=== PATIENT | male | born 1955 | race Caucasian/White ===

== ENCOUNTER 2024-01-10 10:48 | Inpatient (IN) | payer BC, MEDICARE ==
[~2024-01-10] VITALS: Ht 182.9 cm; Wt 107.1 kg
[2024-01-10] MEDS ORDERED: WELLTAB40 PO (11:36)
[2024-01-10] MEDS ORDERED: PRED5TA PO (11:36)
[2024-01-10] MEDS ORDERED: POTA-151 PO (11:36)
[2024-01-10] MEDS ORDERED: LASI20TA3 PO (11:36)
[2024-01-10] MEDS ORDERED: NORV5TAB PO (11:36)
[2024-01-10] MEDS ORDERED: CLOP75TA99 PO (11:36)
[2024-01-10] MEDS ORDERED: ELIQ5TAB PO (11:36)
[2024-01-10] MEDS ORDERED: SERO200T PO (11:36)
[2024-01-10] MEDS ORDERED: PROTPAK PO (11:36)
[2024-01-10] MEDS ORDERED: CLON0.5T17 PO (11:36)
[2024-01-10] MEDS ORDERED: LIPI20TA PO (11:36)
[2024-01-10 11:42] LABS: BASO % 0.6 % (0.0-1.0); EOS # 0.1 10^3/uL (0.0-0.5); HEMATOCRIT 37.9 % (42.0-52.0); HEMOGLOBIN 12.4 g/dl (13.5-17.5); LYMPH # 0.8 10^3/uL (1.5-5.0); LYMPH % 16.5 % (24.0-44.0); MEAN CORPUSCULAR HEMOGLOBIN 31.4 pg (27.0-33.0); MEAN CORPUSCULAR HGB CONC 32.7 g/dl (32.0-36.5); MEAN CORPUSCULAR VOLUME 95.9 fl (80.0-96.0); MONO # 0.4 10^3/uL (0.0-0.8); MONO % 8.6 % (2.0-8.0); NEUTROPHILS # 3.6 10^3/uL (1.5-8.5); NEUTROPHILS % 72.5 % (36.0-66.0); PLATELET COUNT, AUTOMATED 145 10^3/uL (150-450); RED BLOOD COUNT 3.95 10^6/uL (4.30-6.10); WHITE BLOOD COUNT 4.9 10^3/uL (4.0-10.0)
[2024-01-10 11:44] LABS: ETHYL ALCOHOL (ETHANOL) 0.007 % (0.000-0.010)
[2024-01-10 11:46] LABS: CALCIUM LEVEL 9.1 MG/DL (8.3-10.6); CK-MB VALUE MASS 1.1 NG/ML (<3.6); CREATININE FOR GFR 1.75 MG/DL (0.70-1.30); GLOMERULAR FILTRATION RATE 41.6 (>49); INR 1.53; MAGNESIUM LEVEL 1.8 MG/DL (1.8-2.4); PARTIAL THROMBOPLASTIN TIME 27.3 SECONDS (24.8-34.2); POTASSIUM SERUM 4.5 MMOL/L (3.5-5.1); PROTHROMBIN TIME 17.9 SECONDS (12.5-14.5)
[2024-01-10 11:48] LABS: FREE T4 1.07 NG/DL (0.89-1.76); THYROID STIMULATING HORMONE 1.153 uIU/ML (0.55-4.78)
[2024-01-10 11:50] LABS: MB/CK RELATIVE INDEX 1.57 (< OR =4)
[2024-01-10 12:29] LABS: AMPHETAMINES LEVEL URINE NEGATIVE (NEGATIVE)
[2024-01-10 12:30] LABS: BARBITURATES URINE NEGATIVE (NEGATIVE); BENZODIAZEPINES URINE NEGATIVE (NEGATIVE); CANNABINOIDS URINE NEGATIVE (NEGATIVE); COCAINE METABOLITE URINE NEGATIVE (NEGATIVE); METHADONE URINE NEGATIVE (NEGATIVE); OPIATES URINE NEGATIVE (NEGATIVE); PHENCYCLIDINE URINE NEGATIVE (NEGATIVE)
[2024-01-10] MEDS ORDERED: ISOVUE-370 76% 100ML VIAL As Ordered ONE (12:41)
[2024-01-10] MEDS: NS 1,000 ML IV SCH ×2 (13:07→18:27)
[2024-01-10 13:35] LABS: CK-MB VALUE MASS < 1.0 NG/ML (<3.6)
[2024-01-10 13:37] LABS: CPK CREATINE PHOSPHOKINASE 61 U/L (46-171); MB/CK RELATIVE INDEX 1.63 (< OR =4)
[2024-01-10] MEDS ORDERED: PRED1TABL PO (15:24)
[2024-01-10] MEDS ORDERED: PANT40TA29 PO (15:33)
[2024-01-10] MEDS ORDERED: HOME MED LIST COMPLETE! XX SCH (15:35)
[2024-01-10] MEDS: NS 1,000 ML IV ONE ×2 (15:45→21:34)
[2024-01-10 16:53] LABS: HEMOGLOBIN A1c 4.9 % (4.0-6.0)
[2024-01-10 17:40] VITALS: BP 157/96; TEMP 97.7; O2SAT 98
[2024-01-10] MEDS: clonazePAM 0.5 MG TAB PO PRN (18:27)
[2024-01-10 20:10] VITALS: BP 131/74; TEMP 98.2; O2SAT 97
[2024-01-10] MEDS: APIXABAN 5 MG TAB (ELIQUIS) PO SCH (21:04)
[2024-01-10] MEDS: QUEtiapine FUMARATE 200 MG TAB PO SCH (21:04)
[2024-01-10] MEDS: ATORVASTATIN 20 MG TAB PO SCH (21:04)
[2024-01-10] MEDS ORDERED: ACETAMINOPHEN TAB 650MG DOSE (2X325MG) PO PRN (21:10)
[2024-01-10] MEDS: ACETAMINOPHEN 500 MG TAB PO PRN (21:34)
[2024-01-10 22:58] VITALS: O2SAT 96
[2024-01-10 23:30] VITALS: BP 131/74; TEMP 98.2; O2SAT 95
[2024-01-11 03:20] VITALS: BP 119/71; TEMP 97.7; O2SAT 96
[2024-01-11 06:55] LABS: CALCIUM LEVEL 8.5 MG/DL (8.3-10.6); CHOLESTEROL RISK RATIO 3.08 (<5); CREATININE FOR GFR 1.55 MG/DL (0.70-1.30); GLOMERULAR FILTRATION RATE 47.8 (>49); HDL CHOLESTEROL 64.6 MG/DL (>40); NON-HDL-C 134.4 MG/DL; POTASSIUM SERUM 3.7 MMOL/L (3.5-5.1)
[2024-01-11 08:00] VITALS: BP 125/74; TEMP 98.1; O2SAT 96
[2024-01-11 08:38] LABS: HEMATOCRIT 35.5 % (42.0-52.0); HEMOGLOBIN 11.1 g/dl (13.5-17.5); MEAN CORPUSCULAR HEMOGLOBIN 30.7 pg (27.0-33.0); MEAN CORPUSCULAR HGB CONC 31.3 g/dl (32.0-36.5); MEAN CORPUSCULAR VOLUME 98.1 fl (80.0-96.0); PLATELET COUNT, AUTOMATED 130 10^3/uL (150-450); RED BLOOD COUNT 3.62 10^6/uL (4.30-6.10); WHITE BLOOD COUNT 4.6 10^3/uL (4.0-10.0)
[2024-01-11 08:54] VITALS: BP 125/74
[2024-01-11] MEDS: predniSONE 5 MG TAB PO SCH (08:54)
[2024-01-11] MEDS: CLOPIDOGREL 75 MG TAB PO SCH (08:54)
[2024-01-11] MEDS: predniSONE 1 MG TAB PO SCH (08:54)
[2024-01-11] MEDS: buPROPion **XL** TABLET 150MG (WELLBUTRIN XL) PO SCH (08:54)
[2024-01-11] MEDS: amLODIPine 5 MG TAB PO SCH (08:54)
[2024-01-11] MEDS: PANTOPRAZOLE 40MG TAB (PROTONIX) PO SCH (08:55)
== END 2024-01-11 14:38 | disposition home or self-care (01) | DRG 683 ==
LOC: M ED 10:48 → M ED INP 15:35 → M MSPAV 17:36
PROVIDERS: ADMIT Internal Medicine; ATTEND Internal Medicine
DX: N17.9 Acute kidney failure, unspecified (principal); E87.1 Hypo-osmolality and hyponatremia; E87.20 Acidosis, unspecified; J96.10 Chronic respiratory failure, unspecified whether with hypoxia or hypercapnia; G47.33 Obstructive sleep apnea (adult) (pediatric); F41.9 Anxiety disorder, unspecified; I10 Essential (primary) hypertension; R29.6 Repeated falls; M35.3 Polymyalgia rheumatica; K21.9 Gastro-esophageal reflux disease without esophagitis; Z79.01 Long term (current) use of anticoagulants; Z86.711 Personal history of pulmonary embolism; Z86.718 Personal history of other venous thrombosis and embolism; E78.5 Hyperlipidemia, unspecified; Z86.73 Personal history of transient ischemic attack (TIA), and cerebral infarction without residual deficits; E86.0 Dehydration; Z88.2 Allergy status to sulfonamides; Z79.899 Other long term (current) drug therapy; Z98.49 Cataract extraction status, unspecified eye; R55 Syncope and collapse; Z79.52 Long term (current) use of systemic steroids